=== PATIENT | female | born 1965 | race African-American/Black ===

== ENCOUNTER 2022-10-15 15:00 | Emergency (ER) | payer OTHER ==
[~2022-10-15] VITALS: Ht 165.1 cm; Wt 54.0 kg
[2022-10-15 15:07] VITALS: O2SAT 100
[2022-10-15] MEDS ORDERED: ONDANSETRON HCL 4MG/2ML INJ IV NR (15:20)
[2022-10-15] MEDS ORDERED: FENTANYL CITRATE/PF 50MCG/ML 2ML VIAL IV NR (15:30)
[2022-10-15 16:06] LABS: BASOPHILS % 0.7 % (0.0-2.0); EOSINOPHILS % 0.7 % (0.0-5.0); HEMATOCRIT. 35.6 % (36.0-48.0); HEMOGLOBIN. 12.2 g/dL (12.0-16.0); LYMPHOCYTES % 43.3 % (20.0-50.0); MEAN CORPUSCULAR HEMOGLOBIN 31.9 pg (28.0-32.0); MEAN CORPUSCULAR VOLUME 93.1 fL (81.0-99.0); MEAN PLATELET VOLUME 8.6 fl (7.4-10.4); MONOCYTES % 9.7 % (2.0-8.0); NEUTROPHILS % 45.6 % (40.0-76.0); PLATELET 208 x1000/uL (130-400); RED BLOOD CELL COUNT 3.83 mill/uL (4.2-5.4); RED CELL DISTRIBUTION WIDTH 12.5 % (11.6-14.6)
[2022-10-15 16:12] LABS: CHLORIDE 107 mEq/L (98-107)
[2022-10-15 16:22] LABS: ETHANOL BLOOD < 10 mg/dL (-10)
[2022-10-15] MEDS ORDERED: METOCLOPRAMIDE HCL 10MG/2ML VIAL IV ONE (16:30)
[2022-10-15] MEDS ORDERED: KETOROLAC 15MG/ML VIAL IV ONE (16:30)
[2022-10-15] MEDS ORDERED: ASPIRIN 81MG TABLET PO ONE (17:00)
[2022-10-15] MEDS ORDERED: IOHEXOL-350 100 ML BOTTLE ONE (18:57)
[2022-10-15 20:31] VITALS: BP 144/77; PULSE 72; RESP 17; TEMP 98
== END 2022-10-15 20:52 | disposition short-term general hospital (02) ==
LOC: ER 15:00 → CANBEDREQ 23:18
DX: I63.9 Cerebral infarction, unspecified (principal); R11.0 Nausea; Z20.822 Contact with and (suspected) exposure to COVID-19
CPT/HCPCS: 80053; 80320; 85025; 85610; 36415; 71045; 70496; 70498; 70450; 93005; 96374; 96375; 99291; 87426; Q9967; J1885; J2765; J2405; C9803; G0480